=== PATIENT | female | born 1995 | race Caucasian/White ===

== ENCOUNTER 2020-06-18 17:24 | Emergency (ER) | payer MEDICAID, SELFPAY ==
[~2020-06-18] VITALS: Ht 157.5 cm; Wt 64.0 kg
[~2020-06-18 17:24] MED LIST: NKM; ZOFRAN4 MG ORAL
[2020-06-18 17:43] VITALS: BP 113/71
[2020-06-18] MEDS ORDERED: Acetaminophen 500mg (ES) tab ORAL ONE (18:00)
[2020-06-18 18:14] LABS: APPEARANCE,URINE SLIGHTLY CLOUDY; BILIRUBIN, URINE NEGATIVE (NEGATIVE); COLOR,URINE YELLOW; GLUCOSE, URINE (UA) NEGATIVE (NEGATIVE); KETONES,URINE 1+ (NEGATIVE); LEUKOCYTE ESTERASE ,URINE 2+ (NEGATIVE); NITRITE,URINE NEGATIVE (NEGATIVE); PH,URINE 6.5 (4.5-8.0); PROTEIN,URINE 1+ (NEGATIVE); UROBILINOGEN,URINE 1 MG/DL (0.0-1.0)
[2020-06-18 18:19] LABS: BASOPHILS % (AUTO) 1.2 % (0.0-2.0); EOSINOPHILS % (AUTO) 6.3 % (0.0-3.0); HEMOGLOBIN 12.8 G/DL (12.0-16.0); MEAN CORPUSCULAR VOLUME 84 FL (80-99); MONOCYTES % (AUTO) 4.6 % (1.0-10.0); PLATELET COUNT 228 K/UL (150-450); RED BLOOD COUNT 4.63 M/UL (4.20-5.40); RED CELL DISTRIBUTION WIDTH 12.1 % (11.6-14.8); WHITE BLOOD COUNT 11.9 K/UL (4.8-10.8)
[2020-06-18 18:30] LABS: ANION GAP 6 mmol/L (5-15); BLOOD UREA NITROGEN 6 mg/dL (7-18); CALCIUM 8.6 MG/DL (8.5-10.1); CARBON DIOXIDE 26 MMOL/L (21-32); CHLORIDE 104 MMOL/L (98-107); CREATININE 0.6 MG/DL (0.55-1.30); POTASSIUM 4.1 MMOL/L (3.5-5.1); SODIUM 135 MMOL/L (136-145)
[2020-06-18] MEDS ORDERED: DICLEGIS DR 101 EACH PO (18:32)
[2020-06-18] MEDS ORDERED: CEPHALEXIN500 MG ORAL (18:34)
[2020-06-18 18:35] LABS: ALANINE AMINOTRANSFERASE 13 U/L (12-78); ALBUMIN 3.2 G/DL (3.4-5.0); ALBUMIN/GLOBULIN RATIO 0.9 (1.0-2.7); ALKALINE PHOSPHATASE 49 U/L (46-116); ASPARTATE AMINO TRANSFERASE 19 U/L (15-37); BILIRUBIN,TOTAL 0.1 MG/DL (0.2-1.0)
--- NOTE | 2020-06-18 18:39 | Diagnostic Imaging Report ---
History: PAIN Exam: CT HEAD Without Contrast Technique more: CTDI is 53.40 mGy and DLP is 976.40 mGy-cm. Technique more: One or more of the following dose reduction techniques were used: automated exposure control, adjustment of the mA and/or kV according to patient size, use of iterative reconstruction technique. Comparison: None available FINDINGS: No intracranial hemorrhage, mass effect or CT evidence of acute infarct. The ventricles are within limits and midline. Partial opacification of left ethmoid air cells. The other visualized paranasal sinuses appear clear. The visualized orbits and mastoids appear within limits. IMPRESSION: No intracranial hemorrhage, mass effect or CT evidence of acute infarct. Partial opacification of left ethmoid air cells may represent sinus disease, clinically correlate.
[2020-06-18 18:50] VITALS: BP 113/71
--- NOTE | 2020-06-18 21:18 | Emergency Room Report ---
History of Present Illness General Chief Complaint: Eye Problems Source: Patient Present Illness HPI Patient presented for headache for the past 3 days, gradual onset. Patient reports having left-sided eye throbbing. Denies any vomiting or diarrhea. Patient reportedly is denies any fevers. Reports having some increased nasal congestion. Denies any cough. Reports having pain anterior to the ear as well as behind the left eye. Denies any visual changes Allergies: Coded Allergies: No Known Allergies (Unverified , 03/07/13) COVID-19 Screening Contact w/high risk pt: No Experienced COVID-19 symptoms?: No COVID-19 Testing performed NURSE CHEMICAL DEPENDENCY: No Patient History Past Medical History: see triage record Past Surgical History: unable to obtain Now: Yes : 4 Para: 3 Reviewed Nursing Documentation: PMH: Agreed; PSxH: Agreed Nursing Documentation-PMH Hx Asthma: Yes Review of Systems All Other Systems: negative except mentioned in HPI Physical Exam Vital Signs Date Time Temp Pulse Resp B/P (MAP) Pulse Ox O2 Delivery O2 Flow Rate FiO2 06/18/20 17:27 99.0 92 19 113/71 (85) 98 Room Air Sp02 EP Interpretation: reviewed, normal General Appearance: normal inspection, well appearing, no apparent distress, alert, GCS 15 Head: atraumatic ENT: normal ENT inspection, hearing grossly normal, normal voice Neck: normal inspection, full range of motion, supple, no bony tend Respiratory: normal inspection, lungs clear, normal breath sounds, no respiratory distress, no retraction, no wheezing Cardiovascular #1: normal peripheral pulses, regular rate, rhythm, no edema Gastrointestinal: normal inspection, normal bowel sounds, non tender, soft, no guarding, no hernia Genitourinary: no CVA tenderness Musculoskeletal: normal inspection, back normal, decreased range of motion, normal range of motion Neurologic: alert, motor strength/tone normal, environmental health specialist III-XII nml as tested, oriented x3, responsive, speech normal, normal inspection Psychiatric: normal inspection, judgement/insight normal, mood/affect normal Medical Decision Making Diagnostic Impression: Primary Impression: Urinary tract infection Additional Impressions: Ethmoid sinusitis ER Course Patient presented for left-sided headache. Differential diagnosis include was not limited to complication, urinary tract infection, meningitis, subarachnoid hemorrhage among others. Because of complexity of patient's case laboratory tests and imaging studies were ordered. Patient with known to be approximately 12 weeks. Patient was advised risk benefits and alternatives of CT imaging and she indicated understanding wishes to proceed with CT. Patient was shielded for exam. Patient denies any complaints related to her at this time. No vaginal bleeding or abdominal pain. CT imaging showed some sinus thickening in the ethmoid sinus without evidence of intracranial hemorrhage or mass-effect. Patient's laboratory testing was essentially unremarkable except for urinary infection. Patient given prescription for Keflex. She was advised to follow-up with her primary physician for recheck. She is to return if worse. This medical record is generated with [employer] lawn service manager software. There may be some lawn service manager discrepancies related to use of this software Labs Test 06/18/20 18:00 White Blood Count 11.9 K/UL (4.8-10.8) Red Blood Count 4.63 M/UL (4.20-5.40) Hemoglobin 12.8 G/DL (12.0-16.0) Hematocrit 39.0 % (37.0-47.0) Mean Corpuscular Volume 84 FL (80-99) Mean Corpuscular Hemoglobin 27.7 PG (27.0-31.0) Mean Corpuscular Hemoglobin Concent 33.0 G/DL (32.0-36.0) Red Cell Distribution Width 12.1 % (11.6-14.8) Platelet Count 228 K/UL (150-450) Mean Platelet Volume 8.2 FL (6.5-10.1) Neutrophils (%) (Auto) 70.0 % (45.0-75.0) Lymphocytes (%) (Auto) 18.0 % (20.0-45.0) Monocytes (%) (Auto) 4.6 % (1.0-10.0) Eosinophils (%) (Auto) 6.3 % (0.0-3.0) Basophils (%) (Auto) 1.2 % (0.0-2.0) Prothrombin Time 10.7 SEC (9.30-11.50) Prothromb Time International Ratio 1.0 (0.9-1.1) Activated Partial Thromboplast Time 27 SEC (23-33) Urine Color Yellow Urine Appearance Slightly cloudy Urine pH 6.5 (4.5-8.0) Urine Specific [place] 1.015 (1.005-1.035) Urine Protein 1+ (NEGATIVE) Urine Glucose (UA) Negative (NEGATIVE) Urine Ketones 1+ (NEGATIVE) Urine Blood 1+ (NEGATIVE) Urine Nitrite Negative (NEGATIVE) Urine Bilirubin Negative (NEGATIVE) Urine Urobilinogen 1 MG/DL (0.0-1.0) Urine Leukocyte Esterase 2+ (NEGATIVE) Urine RBC 5-10 /HPF (0 - 2) Urine WBC 2-4 /HPF (0 - 2) Urine Squamous Epithelial Cells Many /LPF (NONE/OCC) Urine Bacteria Moderate /HPF (NONE) Sodium Level 135 MMOL/L (136-145) Potassium Level 4.1 MMOL/L (3.5-5.1) Chloride Level 104 MMOL/L (98-107) Carbon Dioxide Level 26 MMOL/L (21-32) Anion Gap 6 mmol/L (5-15) Blood Urea Nitrogen 6 mg/dL (7-18) Creatinine 0.6 MG/DL (0.55-1.30) Estimat Glomerular Filtration Rate > 60 mL/min (>60) Glucose Level 89 MG/DL (74-106) Calcium Level 8.6 MG/DL (8.5-10.1) Total Bilirubin 0.1 MG/DL (0.2-1.0) Aspartate Amino Transf (AST/SGOT) 19 U/L (15-37) Alanine Aminotransferase (ALT/SGPT) 13 U/L (12-78) Alkaline Phosphatase 49 U/L (46-116) Total Protein 6.6 G/DL (6.4-8.2) Albumin 3.2 G/DL (3.4-5.0) Globulin 3.4 g/dL Albumin/Globulin Ratio 0.9 (1.0-2.7) Last Vital Signs Date Time Temp Pulse Resp B/P (MAP) Pulse Ox O2 Delivery O2 Flow Rate FiO2 06/18/20 18:50 99.0 87 19 113/71 98 Room Air Status: improved Disposition: HOME, SELF-CARE Condition: Stable Scripts Cephalexin* (KEFLEX*) 500 Mg Capsule 500 MG ORAL EVERY 6 HOURS, #28 CAP Prov: Ej Bradford MD 06/18/20 Doxylamine/Pyridoxine Hcl (VERONICA ALBERT 10-10 MG TABLET) 1 Each Tablet. 1 EACH PO QHS, #20 TAB Prov: Ej Bradford MD 10/28/20 Patient Instructions: and Urinary Tract Infection Additional Instructions: Follow up with your doctor for recheck. Return if worse. Ej Bradford MD Jun 18, 2020 21:18
== END 2020-06-18 18:50 | disposition home or self-care (01) ==
LOC: EMR 17:34
DX: O26.90 Pregnancy related conditions, unspecified, unspecified trimester (principal); J32.2 Chronic ethmoidal sinusitis; O23.40 Unspecified infection of urinary tract in pregnancy, unspecified trimester; Z3A.00 Weeks of gestation of pregnancy not specified; R51.9 Headache, unspecified
CPT/HCPCS: 36415; 70450; 80053; 81003; 85025; 85610; 85730; 87086; J7030; Z7502; 99284